=== PATIENT | male | born 1970 ===

== ENCOUNTER → 2018-03-11 08:53 | Day surgery (SDC) | payer BC, OTHER ==
--- NOTE | 2018-03-06 20:27 | HP ---
PREOPERATIVE HISTORY AND PHYSICAL: DATE OF ADMISSION/SURGERY: 03/11/18 DATE OF OFFICE VISIT: 03/06/18 ATTENDING SURGEON: Dr. Kanwal St.* (DICTATED BY EDNA HADDAD) PROCEDURE: Left shoulder arthroscopic rotator cuff repair, decompression, debridement, subpectoral biceps tenodesis, and excision of distal clavicle. CHIEF COMPLAINT: Left shoulder pain. HISTORY OF PRESENT ILLNESS: Jovi is a 48-year-old male, who presents to the clinic for left shoulder pain due to rotator cuff tear, biceps tendinitis and AC joint arthritis. He has failed conservative measures and therefore agreed to undergo a left shoulder arthroscopic rotator cuff repair, decompression, debridement, subpectoral biceps tenodesis, and excision of distal clavicle with Dr. St on 03/11/18. PAST MEDICAL HISTORY: Diabetes, hypertension, previous fracture of his bilateral orbits and jaw, and Caceres's esophagus. PAST SURGICAL HISTORY: Laminectomy, left shoulder surgery, cholecystectomy, and back surgery. MEDICATIONS: 1. Celebrex 100 mg 1 cap twice a day with food. 2. Zantac 150 mg 1 by mouth twice a day. 3. Lisinopril 40 mg one-half tab by mouth daily. 4. Lansoprazole 30 mg 1 by mouth every day. 5. Jentadueto 2.06/999 mg 1 by mouth twice a day. 6. Ibuprofen 200 mg 3 tabs as needed. 7. Invokana 300 mg 1 by mouth every day. ALLERGIES: No known drug allergies. FAMILY HISTORY: Positive for diabetes, cancer, and grandmother with possible DVT after hip fracture. SOCIAL HISTORY: He is single. He works as a construction technician. He is a former smoker, quit at age 36. He does continue to chew tobacco. He reports occasional alcohol consumption. He is right-hand dominant. REVIEW OF SYSTEMS: A 14-point review of systems was reviewed with the patient. Positive for current complaint, otherwise negative. Denies fever, chills, chest pain, shortness of breath, history of bleeding disorder, history of DVT or PE. PHYSICAL EXAMINATION GENERAL: A 48-year-old well-developed, well-nourished male, in no acute distress. VITAL SIGNS: Height 72, weight 191, blood pressure 122/80, respiratory rate 18 , temperature 97.8, BMI 25.9. HEENT: Normocephalic, atraumatic. PERRLA. Throat clear. NECK: Supple. PULMONARY: Lungs are clear to auscultation bilaterally. No wheezing, rhonchi, or rales. CARDIO: Regular rate and rhythm. S1, S2. No murmurs, gallops, or rubs. No edema. ABDOMEN: Positive bowel sounds. Soft, nontender. NEURO: Alert and oriented x3. Cranial nerves grossly intact. MUSCULOSKELETAL: Left upper extremity: Skin is intact. No warmth or erythema. Tenderness over the bicipital groove and the AC joint. He has a well- healed surgical incision. He has pain with range of motion. Forward flexion to 140, abduction to 110, external rotation to 30, internal rotation to the posterior hip. +4/5 strength to rotator cuff testing with pain. Positive impingement, Speed, Núñez-Jamil, [place]. +2 radial pulse. Sensation intact to light touch distally. DIAGNOSTIC STUDIES: CT arthrogram revealed extravasation of the subscapularis and intrasubstance tear of the rotator cuff as well as fluid around the biceps and AC joint arthritis. IMPRESSION: Left shoulder rotator cuff tear, AC joint arthritis, and biceps tendinitis. PLAN: The patient is scheduled to undergo a left shoulder arthroscopic rotator cuff repair, decompression, debridement, subpectoral biceps tenodesis, and excision of distal clavicle with Dr. St on 03/11/18. Percocet will be used for postop pain management and Keflex for antibiotic prophylaxis. He will follow up 10 to 14 days postop for followup and suture removal. EDNA HADDAD [id number]/[facility] #: [id number] [facility]
[~2018-03-11 08:53] MED LIST: Acetaminophen TAB* 325 MG PO PRN; Atracurium* 10 MG/ML 10 ML VIAL ONE; Buffered Lidocaine 1% SYRIN* 1 ML/SYRINGE INTRADERM ONE; DiMENhydriNATE IV* 50 MG/ML VIAL IV PUSH PRN; Famotidine IV* 10 MG/ML 2 ML (20 mg) IV ONE; Famotidine IV* 10 MG/ML 2 ML (20 mg) ONE; Ketorolac INJ* 30 MG/ML 1 ML VIAL IV PRN; Ketorolac INJ* 30 MG/ML 1 ML VIAL ONE; Lactated Ringers 1000 ML Bag* 1,000 ML IV SCH; Lidocaine 1%* 5 ML VIAL ONE; Metoclopramide IV* 5 MG/ML 2 ML VIAL IV SLOW PU ONE; Metoclopramide IV* 5 MG/ML 2 ML VIAL ONE; Midazolam* 1 MG/ML 2 ML VIAL (2 MG) ONE; Naloxone* 0.4 MG/ML 1 ML VIAL IV PRN; Ondansetron INJ* 2 MG/ML VIAL ONE; PROCHLORPERAZINE INJ 5 MG/ML 2 ML VIAL IV PRN; PROCHLORPERAZINE INJ 5 MG/ML 2 ML VIAL ONE; Propofol* 10 MG/ML 20 ML BTL ONE; ROPIVACAINE 5 MG/ML 30 ML BTL (0.5%) ONE; Ropivacaine* 2 MG/ML 20 ML VIAL (0.2%) ONE; ceFAZolin 2 GM PREMIX in ORs 2 GM/50 ML BAG IVPB ONE; fentaNYL* 50 MCG/ML 2 ML VIAL (100 MCG VIAL) ONE; oxyCODONE/Acetamin 5/325 MG* TAB ONE; oxyCODONE/Acetamin 5/325 MG* TAB PO PRN
[2018-03-11] MEDS: fentaNYL* 50 MCG/ML 2 ML VIAL (100 MCG VIAL) IV PRN ×3 (12:51→13:36)
[2018-03-11 14:43] VITALS: BP 150/77
--- NOTE | 2018-03-12 00:15 | OP ---
DATE OF OPERATION: 03/11/18 - [facility] DATE OF : 66 ATTENDING SURGEON: Kanwal St MD BENCH CARPENTER: EDNA Nichols. An starch treating assistant was needed for the entirety of the case to help with positioning, retraction, and utilized throughout all portions of the case. ANESTHESIOLOGIST: Dr. Navarro. ANESTHESIA: General interscalene block. PRE-OP DIAGNOSES: 1. Left shoulder impingement. 2. AC joint arthritis. 3. Bicipital tendonitis. 4. Retained hardware. POST-OP DIAGNOSES: 1. Left shoulder impingement. 2. AC joint arthritis. 3. Bicipital tendonitis. 4. Retained hardware. 5. Partial-thickness tear of the rotator cuff. OPERATIVE PROCEDURE: Left shoulder arthroscopy with: 1. Extensive glenohumeral debridement. 2. Distal clavicle excision. 3. Subacromial decompression with acromioplasty. 4. Rotator cuff repair with Regeneten patch. 5. Open subpectoral biceps tenodesis. IMPLANTS USED: One Regeneten patch size medium with the appropriate tendon hortencia and bone hortencia and one Q-Fix anchor 2.8 mm. INDICATIONS: Jovi Unger is a 48-year-old male who injured himself last summer at work when he was running a isai hammer, felt something fell on his shoulders. He has had persistent pain. He has failed conservative management. He has elected to proceed with surgical treatment. He had a Workers' Comp approval to proceed with left shoulder surgery. Risks and benefits were discussed at length included but not limited to bleeding; infection; damage to nerves, vessels, surrounding structures; wound nonhealing; persistent pain; need for further surgery; scaring; stiffness; incomplete relief of symptoms; and risks of anesthesia. DESCRIPTION OF PROCEDURE: The patient was greeted in the preoperative area by the attending surgeon. Correct extremity was marked. Consent was confirmed. The patient underwent interscalene nerve block by the anesthesiologist after which he was brought back to the operating suite. He was placed in the supine position on the operating room table. He then underwent general anesthesia with endotracheal intubation after which he was placed in the right lateral decubitus position. All bony prominences were padded. He was secured with a peg board. The left shoulder was draped unsterile with 10 pounds of traction. The left shoulder was prepped and draped in the usual sterile fashion beginning with chlorhexidine soap, scrub and alcohol wipe and a final prep with ChloraPrep. After appropriate surgical pause indicating site, side, procedure, administration of antibiotics, the standard posterolateral portal was made sharp with an 11 blade. Scope was introduced into the joint. The joint was examined, there were abundant synovitic changes to the shoulder. There was evidence of subluxed biceps tendon, mildly subluxed with superior labral tear. The anterior portal was made in an outside-in fashion. Shaver was used to debride back the anterior, posterior, superior labrum. Inferior recess was intact. Glenohumeral joint had grade 0 to 1 changes. The undersurface of the rotator cuff had moderate-grade partial thickness tearing. This was debrided back using the shaver. Biceps was then tenotomized for later tenodesis. The subscap again was identified to be intact, had some partial- thickness tearing but was mild. Attention was directed to the subacromial space. The scope was positioned in the subacromial space and the lateral portal was made in an outside-in fashion. There was significant abundant bursa that was present. There was evidence of partial thickness tearing of the rotator cuff on the bursal side as well. The undersurface of the acromion had an maryse-lateral spur, this was skeletonized using electrocautery. CA ligament was pealed back. A 4-0 oval jorge a was used to do an acromioplasty, which was taken back all the way to the AC joint. Once the acromioplasty was complete, attention was directed to the AC joint. With the jorge a brought to the anterior portal, distal 8 mm of the clavicle were then resected under arthroscopic visualization. Once the resection was complete and with care not to damage the ligaments, final images were obtained and attention was directed back to the rotator cuff. Again the rotator cuff had partial-thickness tearing bursally as well as on the articular side. Incision was made to do a Regeneten patch to allow this to heal. The size medium patch was chosen and brought back on to the operating room table. This was placed under arthroscopic visualization. Through a separate stab incision, a cannula was placed to help facilitate tendon hortencia which were placed with excellent purchase. The bone hortencia were then impacted into position as well. This was well secured. The final images were obtained and attention was directed to the biceps tenodesis. The bed was airplaned to the left side. The anterior aspect of the shoulder was prepped again using ChloraPrep. A 15-blade was used to make incision in line with the biceps tendon. The soft tissues were carefully dissected bluntly. The elevator was used to expose the biceps and the biceps groove. The biceps were brought through the wound, and there was evidence of tendinosis , tendinopathy, tearing as well as synovitis. The groove was then prepared in the usual fashion using electrocautery device, red ball rasp, and osteotome. The Q-Fix was then drilled unicortically and deployed with excellent purchase. Sutures were then passed through the tendon in a Ike-Fredy type configuration. The excess stump was excised and the biceps shuttled back to the wound. The biceps was secured. The wounds were copiously irrigated with sterile saline. Portals were closed with 3-0 nylon. The anterior wound was closed in layers with 3-0 Monocryl in an interrupted and running fashion. Sterile dressing were applied, a cryo/cuff and UltraSling were applied. He was awoken from anesthesia and transferred to the PACU in stable condition. POSTOPERATIVE PLAN: He will be discharged on pain medication and antibiotics. DVT prophylaxis considered but deferred due to no previous personal or family history. I will see the patient back in 10 to 14 days. [id number]/[facility] #: [id number] TO[facility]
== END | disposition home or self-care (01) ==
LOC: OR 08:53
PROVIDERS: ATTEND Orthopaedic Surgery
DX: S46.012A Strain of muscle(s) and tendon(s) of the rotator cuff of left shoulder, initial encounter (principal); M75.22 Bicipital tendinitis, left shoulder; M19.112 Post-traumatic osteoarthritis, left shoulder; M75.42 Impingement syndrome of left shoulder; X50.0XXA Overexertion from strenuous movement or load, initial encounter; Y92.89 Other specified places as the place of occurrence of the external cause; Y99.0 Civilian activity done for income or pay; G89.18 Other acute postprocedural pain; E11.9 Type 2 diabetes mellitus without complications; Z79.84 Long term (current) use of oral hypoglycemic drugs; I10 Essential (primary) hypertension; K21.9 Gastro-esophageal reflux disease without esophagitis
CPT/HCPCS: A9270-GY; C1713; C1776; J0690; J0780; J1885; J2250; J2405; J2704; J2765; J2795; J3010